=== PATIENT | male | born 1945 | race Caucasian/White ===

== ENCOUNTER 2018-09-25 08:56 | Day surgery (SDC) | payer MEDICARE ==
--- NOTE | 2018-09-25 08:04 | HP ---
DATE OF SURGERY: 09/25/2018 HISTORY OF PRESENT ILLNESS: The patient is a 73 year-old with history of polyps in the past. He had reminder for follow up colonoscopy. He denies any bloody stools, denies any pain. History of polyps, history of rectal cancer in the past. He is in need of follow up colonoscopy. PAST MEDICAL HISTORY: In addition to history of rectal cancer, he has history of hypertension, hypothyroidism. PAST SURGICAL HISTORY: Colonoscopy in the past. Back surgery, hand surgery, carpal tunnel, wide excision of ulcers on his back in the past. History of mesh erosion and removal in the past. Low anterior resection for rectal cancer in the past. MEDICATIONS: Lisinopril, levothyroxine. ALLERGIES: NKDA. FAMILY HISTORY: Heart disease, cancer, diabetes. SOCIAL HISTORY: No alcohol abuse. REVIEW OF SYSTEMS: Twelve systems reviewed per admission assessment. No chest pain or palpitations other systems negative or noncontributory as above and per preadmission questionnaire. PHYSICAL EXAMINATION: GENERAL: No acute distress. HEENT: Sclerae nonicteric. NECK: No JVD. CHEST: Equal excursion, nonlabored breathing. CVS: Regular rate and rhythm. ABDOMEN: Soft. No peritoneal signs. EXTREMITIES: No significant edema. NEURO: Alert, oriented, moving extremities symmetrically. No gross motor deficits noted. RECTAL: Deferred timed to endoscopy exam. IMPRESSION: History of polyps, history of rectal cancer. He is in need of follow up colonoscopy. I feel he is a candidate. He is shown the risk sheet, explained the procedure in detail but not limited to bleeding or infection, small risk of bowel injury or perforation possibly requiring open procedure, risk of missed or nondiagnosis or incomplete exam possibly requiring barium enema, other studies or procedures, general risk of anesthesia or sedation, risk of bowel prep but not limited to. He understands and agrees to the planned procedure and will proceed with outpatient colonoscopy.
[~2018-09-25 08:56] MED LIST: Lactated Ringers 1,000 ML IV ONE; Lactated Ringers 1,000 ML IV SCH
[2018-09-25] MEDS ORDERED: Ketamine HCl 50 MG/ML IJ ONE (08:57)
[2018-09-25] MEDS ORDERED: DIPRIVAN 200 MG/20 ML IV ONE (08:57)
--- NOTE | 2018-09-25 13:52 | OP ---
SURGERY DATE/TIME: 09/25/2018 1129 PREOPERATIVE DIAGNOSES: 1) History of polyps. 2) History of rectal cancer status post resection at [facility] in the past. POSTOPERATIVE DIAGNOSES: 1) Polyps, small internal and external hemorrhoids. 2) Adequate bowel prep. PROCEDURES: 1) Colonoscopy to terminal ileum. 2) Retrograde ileoscopy. 3) Hot biopsy removal of small cecal polyp. 4) Hot biopsy removal of two additional proximal ascending colon small polyps. 5) Hot snare polypectomy of 6 to 7 mm polyp on a fold proximal ascending colon. SURGEON: Dr. Javier Barnes. ANESTHESIA: MAC. ESTIMATED BLOOD LOSS: Minimal. INDICATIONS: As noted above. Risks and benefits explained in detail but not limited to and consent obtained. DESCRIPTION OF PROCEDURE AND FINDINGS: The patient is taken to the operating room. MAC anesthesia introduced. After official time out and no disagreement with planned procedure, a digital rectal exam did not reveal any rectal masses. He did have some small internal and external hemorrhoids. Video colonoscope inserted and passed up through the patent anastomosis. No evidence of any recurrence up through the somewhat tortuous sigmoid, descending, transverse, ascending colon around to the cecum. The scope was able to be passed up terminal ileum. The ileum was grossly unremarkable. Retrograde ileoscopy was performed which is grossly unremarkable. The scope is carefully withdrawn. Prep overall was adequate. There were some areas of liquidy semisolid stool. There was some solid stool in the colon this is suction irrigated as well as possible. I do not feel I missed any large lesions but did have some stool in the colon. Small polyp in the cecum removed with hot biopsy forceps with brief bursts of cautery. Good hemostasis noted. Another couple small proximal ascending colon early polyps versus hyperplastic lesions removed with hot biopsy forceps with brief bursts of cautery. Good hemostasis noted. There was 6 to 7 mm elongated polyp on a fold this is removed with hot snare polypectomy and brief bursts of cautery. Good hemostasis noted. The base appeared to be viable this was able to be suctioned free. The staff said this was retrieved in the polyp track. The scope is slowly and carefully withdrawn. Suction irrigating the stool as well as possible which quite limited the exam for very tiny lesions otherwise there were no signs any large polyps, masses or obstructing lesions. The low anterior anastomotic site was patent. No evidence of recurrence. He has a small internal hemorrhoid otherwise no signs of any large polyps, masses or obstructing lesions. The patient tolerated the procedure well. There were no immediate complications. There was no family available to discuss the findings with at this time.
[2018-09-25 14:10] VITALS: BP 134/94; PULSE 79; O2SAT 98
== END 2018-09-25 13:35 | disposition home or self-care (01) ==
LOC: SDC 08:56
PROVIDERS: ATTEND Surgery
DX: D12.2 Benign neoplasm of ascending colon (principal); D12.0 Benign neoplasm of cecum; Z86.010 Personal history of colon polyps; K64.4 Residual hemorrhoidal skin tags; K64.8 Other hemorrhoids; Z85.048 Personal history of other malignant neoplasm of rectum, rectosigmoid junction, and anus
CPT/HCPCS: 88305; 99100; J2704

== ENCOUNTER 2021-12-21 09:21 | Day surgery (SDC) | payer MEDICARE ==
--- NOTE | 2021-12-21 09:05 | HP ---
PROCEDURE DATE: 12/21/2021 HISTORY OF PRESENT ILLNESS: The patient is a 76 y/o with no change in bowel movements. No bloody stools. No current pain. He has had a history of polyps in the past. In need of follow-up screening colonoscopy. PAST MEDICAL HISTORY: History of polyps. History of hypertension. CURRENT MEDICATIONS: Lisinopril. ALLERGIES: NKDA. PAST SURGICAL HISTORY: He has had back surgery, had hernia surgery, hand surgery, had colon resection in the past, shoulder surgery. FAMILY HISTORY: Cancer of unknown type. Diabetes. Heart disease. SOCIAL HISTORY: No smoking or alcohol abuse currently. REVIEW OF SYSTEMS: 14 systems reviewed negative. No chest pain or palpitations. Pertinent for history of colon cancer. History of polyps in the past. PHYSICAL EXAMINATION: GENERAL: No acute distress. HEENT: Sclerae nonicteric. NECK: No JVD. CHEST: Equal excursion. Nonlabored breathing. CVS: Regular rate and rhythm. ABDOMEN: Soft. No peritoneal signs. EXTREMITIES: No significant edema. NEURO: Alert and oriented, moving extremities symmetrically. PSYCH: Full mood and affect. RECTAL: Deferred until time of endoscopy exam. IMPRESSION: 1. HISTORY OF POLYPS. 2. HISTORY OF COLORECTAL CANCER. He is in need of follow-up screening colonoscopy. Feel he is a candidate. Show the risk sheet. Explained the procedure in detail including, bleeding; infection; risk of bowel injury or perforation possibly requiring open procedure; risk of missed or nondiagnosis or incomplete exam possibly requiring barium enema or other studies or procedures; general risk of anesthesia or sedation; risk of bowel prep, but not limited to. Consent obtained. Will proceed with outpatient follow-up screening colonoscopy.
[~2021-12-21 09:21] MED LIST changes: -Lactated Ringers 1,000 ML IV ONE
[2021-12-21] MEDS ORDERED: Lactated Ringers 1,000 ML IV ONE (09:43)
[2021-12-21] MEDS ORDERED: Xylocaine-Mpf 2% 5 Ml Vial ONE (10:54)
[2021-12-21] MEDS ORDERED: DIPRIVAN 200 MG/20 ML IV ONE (10:54)
[2021-12-21 12:04] VITALS: BP 157/82; O2SAT 97
[2021-12-21 12:27] VITALS: PULSE 55
--- NOTE | 2021-12-22 14:53 | OP ---
SURGERY DATE: 12/21/2021 SURGERY TIME: 1159 PREOPERATIVE DIAGNOSIS: 1. HISTORY OF COLON CANCER. 2. HISTORY OF POLYPS. POSTOPERATIVE DIAGNOSIS: 1. ASA II. 2. MILD DIVERTICULOSIS. 3. CECAL POLYP. 5. WITHDRAWAL TIME APPROXIMATELY 9 MINUTES. PROCEDURE: 1. Colonoscopy to cecum with hot biopsy piecemeal removal of small cecal early polyp. SURGEON: Dr. Javier Barnes. ANESTHESIA: MAC. ESTIMATED BLOOD LOSS: Minimal. INDICATIONS: As noted above. Risks and benefits explained in detail, but not limited to. Consent obtained. DESCRIPTION OF PROCEDURE AND FINDINGS: The patient as taken to the OR/endoscopy suite. MAC anesthesia induced. After official time-out, no disagreement in planned procedure. Digital rectal exam did not reveal any rectal masses. Video colonoscope inserted and passed up through the slightly tortuous sigmoid, descending, transverse, and ascending colon to cecum. Appendiceal orifice and valve well visualized and photo documented. Prep was fair. He had some mild diverticulosis left colon. There was a small early polyp that required piecemeal removal as above, 2.5 mm in size. Was removed in 2 small pieces at the cecum. Good hemostasis noted. Appeared to be removed completely. The scope was then carefully withdrawn over the next 9 minutes. No signs of any large polyps, masses, or obstructing lesions. He did have diverticulosis in the remaining left colon and the anastomotic site appeared to be patent. No evidence of any recurrence. The scope was withdrawn. The patient tolerated the procedure well. There were no immediate complications. Findings discussed with the family out in the waiting area.
== END 2021-12-21 12:35 | disposition home or self-care (01) ==
LOC: SDC 09:21
PROVIDERS: ATTEND Surgery
DX: Z08 Encounter for follow-up examination after completed treatment for malignant neoplasm (principal); Z85.038 Personal history of other malignant neoplasm of large intestine; Z09 Encounter for follow-up examination after completed treatment for conditions other than malignant neoplasm; Z86.010 Personal history of colon polyps; K57.30 Diverticulosis of large intestine without perforation or abscess without bleeding; D12.0 Benign neoplasm of cecum
CPT/HCPCS: 99100; J2704

== ENCOUNTER 2025-06-03 09:58 | Day surgery (SDC) | payer MEDICARE ==
--- NOTE | 2025-06-03 07:45 | HP ---
HISTORY OF PRESENT ILLNESS: An 79-year-old, had an increased gas and developed a bulge in the left inguinal hernia. PAST MEDICAL HISTORY: Glaucoma, history of cataracts in the past, hypertension, history of colon cancer in the past, arthritis, hyperlipidemia, hypothyroidism, asthma. HOME MEDICATIONS: Vitamin B12, vitamin C, acetaminophen, melatonin, glucose, latanoprost, levothyroxine, prednisolone, lisinopril. ALLERGIES: No known drug allergies. PAST SURGICAL HISTORY: Back surgery, rotator cuff surgery, hand reconstruction from a finger caught in a machine in the past, had colonoscopy in the past, had partial colectomy in the past. SOCIAL HISTORY: No smoking. No alcohol abuse. FAMILY HISTORY: Negative in regard to this problem. REVIEW OF SYSTEMS: Twelve systems reviewed. No chest pain or palpitation. Other systems negative or noncontributory as above and per preadmission questionnaire. PHYSICAL EXAMINATION: GENERAL: No acute distress. VITAL SIGNS: Height 5 feet 6 inches. BMI 26.63. HEENT: Sclerae nonicteric. NECK: No JVD. CARDIOVASCULAR: Regular rate and rhythm. RESPIRATORY: Equal excursion, nonlabored breathing. ABDOMEN: Soft. Left inguinal hernia. No obvious swelling on the right at this time on physical exam. SKIN: Dry. EXTREMITIES: No cyanosis or edema. NEUROLOGIC: Alert and oriented, moving extremities symmetrically. PSYCHIATRIC: Appropriate mood and affect. IMPRESSION: Left inguinal hernia. I recommend repair. Discussed option of no intervention versus open repair. Given his prior open colon resection, prefer to proceed with open repair of left inguinal hernia. Risks of bleeding and infection; risks of hematoma, seroma, hydrocele formation; risks of healing ridge or mesh infection, or erosion possibly requiring removal; risks of hernia recurrence; risks of black and blue and bruising; risks of aches, pains, burning, or numbness; risks of sensory nerve irritation, scar formation, and injury with up to 10% to 12% risk, chronic aches and pains, possible interfering with sexual function from a pain standpoint; risks of urinary retention; bowel, bladder, or blood vessel issues or injury, but not limited to; risks of anesthesia, DVT, PE, pneumonia, but not limited to. We will proceed with open repair with hernia mesh as an outpatient. Otherwise, continue medications for asthma, glaucoma, hypertension, hyperlipidemia, thyroid, and arthritis.
[2025-06-03] MEDS ORDERED: NEURONTIN PO ONE (10:02)
[2025-06-03] MEDS ORDERED: celeBREX 100 MG ONE (10:06)
[2025-06-03] MEDS ORDERED: TYLENOL EXTRA STRENGTH 500 MG ONE (10:06)
[2025-06-03] MEDS ORDERED: CEFAZOLIN SODIUM ONE (10:06)
[2025-06-03] MEDS ORDERED: Decadron 4 MG ONE (10:07)
[2025-06-03] MEDS ORDERED: Lactated Ringers 1,000 ML IV ONE (10:07)
[2025-06-03 10:22] VITALS: RESP 18
[2025-06-03] MEDS: Lactated Ringers 1,000 ML IV SCH (10:25)
[2025-06-03] MEDS: Decadron 4 MG PO ONE (10:26)
[2025-06-03] MEDS: TYLENOL EXTRA STRENGTH 500 MG PO ONE (10:26)
[2025-06-03] MEDS: celeBREX 100 MG PO ONE (10:26)
[2025-06-03 10:50] LABS: Calcium 9.7 mg/dL (8.4-10.2); Carbon Dioxide 22.0 mmol/L (22-30); Creatinine 1 0.98 mg/dL (0.66-1.25); EST GLOMERULAR FILTRATION RATE 77.5 ML/MIN; Glucose 112.0 mg/dL (74-106); Potassium 3.9 mmol/L (3.5-5.1)
[2025-06-03] MEDS ORDERED: Xylocaine-Mpf 2% 5 Ml Vial ONE (12:04)
[2025-06-03] MEDS ORDERED: BRIDION 200MG/2ML IV ONE ×2 (12:04→12:40)
[2025-06-03] MEDS ORDERED: ROCURONIUM BROMIDE IV ONE (12:04)
[2025-06-03] MEDS ORDERED: propofoL IV ONE (12:04)
[2025-06-03] MEDS ORDERED: Zofran 4 MG/2 ML VIAL ONE ×2 (12:04→12:25)
[2025-06-03] MEDS ORDERED: SUBLIMAZE 100 MCG/2 ML ONE ×2 (12:04→14:20)
[2025-06-03] MEDS ORDERED: TORAdol 30 mg Injection ONE (12:04)
[2025-06-03] MEDS ORDERED: Sensorcaine 0.25% 10 ML ONE (12:04)
[2025-06-03] MEDS ORDERED: PHENYLEPHRINE HCL ONE (12:28)
[2025-06-03] MEDS ORDERED: Ephedrine Sulfate 50 MG/ML ONE (12:43)
[2025-06-03] MEDS ORDERED: Naropin 0.5% 30 ML VIAL ONE (12:50)
[2025-06-03 15:00] VITALS: O2SAT 96
[2025-06-03 15:23] VITALS: BP 140/97; PULSE 61; TEMP 97.1
--- NOTE | 2025-06-05 09:02 | OP ---
SURGERY DATE/TIME: 06/03/2025 5891-8186 PREOPERATIVE DIAGNOSIS: Large left inguinal hernia. POSTOPERATIVE DIAGNOSIS: Large left inguinal hernia including cord lipoma. PROCEDURE: 1) Open repair of large left inguinal hernia with mesh. 2) Excision of cord lipoma. SURGEON: Otoniel Barnes MD ANESTHESIA: General. ESTIMATED BLOOD LOSS: Minimal. INDICATIONS: Consent obtained. DESCRIPTION OF PROCEDURE AND FINDINGS: Sites was confirmed and marked in the preoperative holding area. He was taken to the operating room, general anesthesia induced. He was prepped and draped in usual sterile fashion. After official time-out and no disagreement in planned procedure, a transverse incision was made in the left inguinal area. Dissection carried down. Hypogastric subcutaneous vein was clamped, divided, and ligated with Vicryl ties. Dissection carried down through Sara's fascia, through the external oblique toward the direction of its fibers toward the external ring. The cord was mobilized up off the pubic tubercle with a Kathleen drain. Cremasteric fibers were carefully , carefully protecting the ilioinguinal nerve which was visualized lying on the cord. Had 2 or 3 large cord lipomas that were out lateral to the cord. These were carefully dissected and high ligated down by the internal ring with some 3-0 Vicryl suture ligatures and passed off. There was a moderate-sized direct hernia component. This was closed and imbricated down with a running 0 PDS. It was felt the patient needed mesh repair. The keyhole regular-size mesh was carefully secured to the fascia overlying the pubic tubercle and run along Jr's ligament laterally along the shelving portion of the inguinal ligament laterally past the internal ring with 0 Prolene. 0 Prolene used to transfix to the rectus fascia medially. 0 Vicryl used to transfix to the aponeurosis and internal oblique superiorly, avoiding the visible branches of the hypogastric nerve. The tails of the meshes were tied together laterally with 0 Prolene. The new internal ring was felt to be not too tight. Good hemostasis noted. Wound irrigated out. External oblique closed with 0 Vicryl, Sara's closed with 3-0 Vicryl, subcutaneous closed with 3-0 Vicryl, skin closed with 4-0 Vicryl. Marcaine 0.25% local injected along the skin incision back toward the origin of the inguinal hernia back toward the anterior iliac spine. The patient tolerated the procedure well. Findings discussed with family out in the waiting area. He should avoid heavy lifting for 8 weeks due to the large size of the hernia.
== END 2025-06-03 15:30 | disposition home or self-care (01) ==
LOC: SDC 09:58
PROVIDERS: ATTEND Surgery
DX: K40.90 Unilateral inguinal hernia, without obstruction or gangrene, not specified as recurrent (principal); D17.6 Benign lipomatous neoplasm of spermatic cord